=== PATIENT | male | born 1975 | race African-American/Black ===

== ENCOUNTER 2018-10-02 11:55 | Emergency (ER) | payer MEDICAID ==
[~2018-10-02] VITALS: Ht 182.9 cm; Wt 134.0 kg
[2018-10-02] MEDS ORDERED: LURA120T PO (12:19)
[2018-10-02] MEDS ORDERED: KETOROLAC 15MG/ML VIAL IV ONE (14:30)
[2018-10-02 14:48] LABS: CLARITY URINE CLEAR (CLEAR); COLOR URINE YELLOW (YELLOW); KETONES URINE NEGATIVE (NEGATIVE); LEUKOCYTE ESTERASE URINE NEGATIVE (NEGATIVE); NITRITE URINE NEGATIVE (NEGATIVE); OCCULT BLOOD URINE NEGATIVE (NEGATIVE); PH URINE 5.5 (4.5-8.0); PROTEIN URINE 2+ (NEGATIVE); SPECIFIC GRAVITY URINE 1.026 (1.005-1.030)
[2018-10-02 14:56] LABS: BASOPHILS % 1.2 % (0.0-2.0); HEMATOCRIT. 45.4 % (42.0-52.0); HEMOGLOBIN. 15.3 g/dL (14.0-18.0); LYMPHOCYTES % 38.6 % (20.0-50.0); MEAN CORPUSCULAR HEMOGLOBIN 28.6 pg (28.0-32.0); MEAN CORPUSCULAR VOLUME 84.8 fL (80.0-94.0); MEAN PLATELET VOLUME 10.7 fl (7.4-10.4); MONOCYTES % 5.5 % (2.0-8.0); NEUTROPHILS % 52.7 % (40.0-76.0); PLATELET 156 x1000/uL (130-400); RED BLOOD CELL COUNT 5.35 mill/uL (4.7-6.1); RED CELL DISTRIBUTION WIDTH 13.5 % (11.6-14.6)
[2018-10-02 15:02] LABS: CHLORIDE 104 mEq/L (98-107); INR 1.1; PROTHROMBIN TIME 10.9 sec (9.6-11.0)
[2018-10-02] MEDS ORDERED: SODIUM CHLORIDE 0.9% 1,000 ML IV ONE (15:15)
[2018-10-02 17:30] VITALS: BP 148/69
== END 2018-10-02 19:30 | disposition home or self-care (01) ==
LOC: ER 11:55
DX: S92.001S Unspecified fracture of right calcaneus, sequela (principal); G89.29 Other chronic pain; M54.5 Low back pain; M79.671 Pain in right foot; M79.674 Pain in right toe(s); R10.9 Unspecified abdominal pain; E11.65 Type 2 diabetes mellitus with hyperglycemia; F17.200 Nicotine dependence, unspecified, uncomplicated; Z98.890 Other specified postprocedural states; V89.2XXS Person injured in unspecified motor-vehicle accident, traffic, sequela
CPT/HCPCS: 36415; 80053; 81003; 83690; 85025; 85610; 96374; 99283; J1885